=== PATIENT | male | born 1955 | race Caucasian/White ===

== ENCOUNTER → 2018-05-23 14:12 | Outpatient (CLI) | payer OTHER, SELFPAY ==
--- NOTE | 2018-05-23 14:14 | DI.RAD.S_ITS ---
PROCEDURE: XR FOOT LT MIN 3V INDICATIONS: 62 year-old male with left fourth toe injury. TECHNIQUE: 3 views of the foot were acquired. COMPARISON: None. FINDINGS: Bones: There is an impacted fracture of the fourth proximal phalangeal head and neck. Other bones appear intact. No suspicious bony lesions. Soft tissues: No tibiotalar joint effusion. Achilles tendon appears normal. IMPRESSION: Impacted fracture of the fourth proximal phalanx head and neck, with possible intra-articular extension. Dictated by: Andrae Frost M.D. on 05/23/2018 at 15:23 Approved by: Andrae Frost M.D. on 05/23/2018 at 15:24
== END ==
PROVIDERS: Family Provider Internal Medicine; PCP Internal Medicine; Visit Provider Internal Medicine
DX: S92.512A Displaced fracture of proximal phalanx of left lesser toe(s), initial encounter for closed fracture (principal)
CPT/HCPCS: 73630

== ENCOUNTER → 2018-07-26 16:28 | Outpatient (CLI) | payer OTHER, SELFPAY ==
[2018-07-26 17:23] LABS: Add Manual Diff / Slide Review NO; Basophils Percent Auto 1.2 % (0-2); Eosinophils Percent Auto 2.5 % (2-4); Hematocrit 44.4 % (41-53); Hemoglobin 15.2 g/dL (13.5-17.5); Lymphocytes Percent Auto 29.4 % (25-40); Mean Corpuscular HGB Conc 34.3 % (30-36); Mean Corpuscular Hemoglobin 34.5 PG (26-34); Mean Corpuscular Volume 100.6 fL (80-100); Monocytes Percent Auto 9.9 % (3-14); Neutrophils Absolute Auto 2900 /uL (3000-5900); Platelet Count 245 X10^3/uL (150-400); Red Blood Cell Count 4.41 X10^6/uL (4.5-5.9); Red Cell Distribution Width 13.8 % (11.6-14.8); White Blood Cell Count 5.1 X10^3/uL (4.5-11.0)
[2018-07-26 18:09] LABS: Alanine Aminotransferase 18 IU/L (21-72); Albumin 4.6 g/dL (3.5-5.0); Albumin Globulin Ratio 1.4 (1.0-2.8); Alkaline Phosphatase 66 U/L (38-126); Aspartate Aminotransferase 26 IU/L (17-59); BUN Creatinine Ratio 18.8 (6-22); Bilirubin Total 0.3 mg/dL (0.2-1.3); Blood Urea Nitrogen 15 mg/dL (9-20); Calcium 9.6 mg/dL (8.4-10.2); Carbon Dioxide 30 mmol/L (22-32); Chloride 105 mmol/L (98-107); Estimated Glomerular Filt Rate > 60.0 mL/min (>60); Globulin 3.2 g/dL (1.7-4.1); Glucose 83 mg/dL (80-110); HEMOLYSIS < 15 (0-50); Potassium 4.4 mmol/L (3.4-5.1); Sodium 146 mmol/L (137-145); Total Protein 7.8 g/dL (6.3-8.2)
== END ==
PROVIDERS: Family Provider Internal Medicine; PCP Internal Medicine; Visit Provider Internal Medicine
DX: E78.2 Mixed hyperlipidemia (principal)
CPT/HCPCS: 36415; 80053; 85025

== ENCOUNTER → 2019-09-04 10:41 | Outpatient (CLI) | payer OTHER, SELFPAY ==
[2019-09-04 12:10] LABS: Alanine Aminotransferase 22 IU/L (21-72); Albumin 4.8 g/dL (3.5-5.0); Albumin Globulin Ratio 1.5 (1.0-2.8); Alkaline Phosphatase 57 U/L (38-126); Aspartate Aminotransferase 23 IU/L (17-59); Bilirubin Total 0.8 mg/dL (0.2-1.3); Blood Urea Nitrogen 14 mg/dL (9-20); Calcium 10.2 mg/dL (8.4-10.2); Carbon Dioxide 26 mmol/L (22-32); Chloride 103 mmol/L (98-107); Cholesterol 269 mg/dL (140-199); Estimated Glomerular Filt Rate > 60.0 mL/min (>60); Globulin 3.2 g/dL (1.7-4.1); Glucose 102 mg/dL (80-110); HDL Cholesterol 87 mg/dL (40-60); HEMOLYSIS < 15 (0-50); LDL Cholesterol Calculated 145 mg/dL (<100); Potassium 4.8 mmol/L (3.4-5.1); Sodium 140 mmol/L (137-145); Triglycerides 183 mg/dL (35-150)
== END ==
PROVIDERS: PCP Internal Medicine; Visit Provider Internal Medicine
DX: E78.2 Mixed hyperlipidemia (principal); G89.4 Chronic pain syndrome; I10 Essential (primary) hypertension; Z12.5 Encounter for screening for malignant neoplasm of prostate
CPT/HCPCS: 36415; 80053; 80061; G0103

== ENCOUNTER → 2020-09-02 11:40 | Outpatient (CLI) | payer OTHER, SELFPAY ==
[2020-09-02 12:53] LABS: Alanine Aminotransferase 18 IU/L (<50); Albumin 4.3 g/dL (3.5-5.0); Albumin Globulin Ratio 1.4 (1.0-2.8); Alkaline Phosphatase 48 U/L (38-126); Aspartate Aminotransferase 23 IU/L (17-59); BUN Creatinine Ratio 13.3 (6-22); Bilirubin Total 0.5 mg/dL (0.2-1.3); Blood Urea Nitrogen 13 mg/dL (9-20); Calcium 9.2 mg/dL (8.4-10.2); Carbon Dioxide 28 mmol/L (22-32); Chloride 107 mmol/L (98-107); Cholesterol 225 mg/dL (140-199); Estimated Glomerular Filt Rate > 60.0 mL/min (>60); Globulin 3.1 g/dL (1.7-4.1); Glucose 95 mg/dL (80-110); HDL Cholesterol 69 mg/dL (40-60); HEMOLYSIS < 15 (0-50); LDL Cholesterol Calculated 128 mg/dL (<100); Potassium 4.1 mmol/L (3.4-5.1); Sodium 142 mmol/L (137-145); Total Protein 7.4 g/dL (6.3-8.2); Triglycerides 142 mg/dL (35-150)
[2020-09-02 13:13] LABS: Prostate Specific Antigen Scrn 0.394 ng/mL (0.1-4.0)
== END ==
PROVIDERS: PCP Internal Medicine; Referring Provider Internal Medicine; Visit Provider Internal Medicine
DX: E78.2 Mixed hyperlipidemia (principal); G89.4 Chronic pain syndrome; I10 Essential (primary) hypertension; Z12.5 Encounter for screening for malignant neoplasm of prostate
CPT/HCPCS: 36415; 80053; 80061; G0103

== ENCOUNTER → 2022-03-22 11:32 | Outpatient (CLI) | payer OTHER, SELFPAY ==
[2022-03-22 14:05] LABS: Alanine Aminotransferase 13 IU/L (<50); Albumin 4.8 g/dL (3.5-5.0); Albumin Globulin Ratio 1.6 (1.0-2.8); Alkaline Phosphatase 66 U/L (38-126); Aspartate Aminotransferase 22 IU/L (17-59); BUN Creatinine Ratio 13.7 (6-22); Bilirubin Total 0.5 mg/dL (0.2-1.3); Blood Urea Nitrogen 13 mg/dL (9-20); Calcium 9.4 mg/dL (8.4-10.2); Carbon Dioxide 26 mmol/L (22-32); Chloride 105 mmol/L (98-107); Cholesterol 298 mg/dL (140-199); Estimated Glomerular Filt Rate > 60 mL/min (>60); Glucose 89 mg/dL (80-110); HDL Cholesterol 77 mg/dL (40-60); HEMOLYSIS < 15 (0-50); LDL Cholesterol Calculated 185 mg/dL (<100); Potassium 4.3 mmol/L (3.4-5.1); Sodium 142 mmol/L (137-145); Total Protein 7.8 g/dL (6.3-8.2); Triglycerides 179 mg/dL (35-150)
[2022-03-22 14:28] LABS: Prostate Specific Antigen Scrn 0.663 ng/mL (0.1-4.0)
== END ==
PROVIDERS: PCP Internal Medicine; Referring Provider Internal Medicine; Visit Provider Internal Medicine
DX: I10 Essential (primary) hypertension (principal); Z12.5 Encounter for screening for malignant neoplasm of prostate; F11.20 Opioid dependence, uncomplicated; Z13.6 Encounter for screening for cardiovascular disorders
CPT/HCPCS: 36415; 80053; 80061; G0103

== ENCOUNTER → 2022-07-17 11:11 | Outpatient (CLI) | payer OTHER, SELFPAY ==
--- NOTE | 2022-07-17 11:12 | DI.MRI.S_ITS ---
PROCEDURE: MR SHOULDER RT WO CON INDICATIONS: ROTATOR CUFF ARTHROPATHY TECHNIQUE: Noncontrast oblique coronal T2 fast spin echo with fat saturation, oblique sagittal T1 spin echo and T2 fast spin echo with fat saturation, axial T1 spin echo and T2 fast spin echo with fat saturation through the shoulder. COMPARISON: [facility] [place], [place], XR SHOULDER 2+ VIEWS RIGHT, 06/29/2022, 15:15. FINDINGS: Image quality: Excellent. Rotator cuff: Nearly completely atrophied supraspinatus, infraspinatus, and teres minor. Complete supraspinatus and infraspinatus tear. Some fibers of the teres minor remain intact. High-grade tendinosis of the subscapularis with multifocal interstitial tearing. Bones and bursae: Complete communication with the subacromial subdeltoid bursa with the joint space, which has a moderate size effusion. Severe degenerative changes of the acromioclavicular joint, with a small geyser sign. The humeral head is superiorly subluxed in relation to the glenoid. Capsule and soft tissues: The inferior glenohumeral ligament is intact. The long head biceps tendon is not well seen in the intra-articular aspect. Moderate joint effusion with multiple loose bodies. The superior, anterior, and posterior labrum are highly attenuated. 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 Moderate-sized joint effusion with loose bodies. Dictated by: Musa Sahni M.D. on 07/19/2022 at 14:57 Approved by: Musa Sahni M.D. on 07/19/2022 at 15:03
== END ==
PROVIDERS: PCP Internal Medicine; Referring Provider Orthopaedic Surgery; Visit Provider Orthopaedic Surgery
DX: M19.011 Primary osteoarthritis, right shoulder (principal); M25.411 Effusion, right shoulder; M24.011 Loose body in right shoulder
CPT/HCPCS: 73221

== ENCOUNTER → 2023-03-23 10:05 | Outpatient (CLI) | payer OTHER, SELFPAY ==
[2023-03-23 11:25] LABS: Alanine Aminotransferase 27 IU/L (<50); Albumin 4.6 g/dL (3.5-5.0); Albumin Globulin Ratio 1.5 (1.0-2.8); Alkaline Phosphatase 66 U/L (38-126); Aspartate Aminotransferase 36 IU/L (17-59); BUN Creatinine Ratio 16.4 (6-22); Bilirubin Total 0.4 mg/dL (0.2-1.3); Blood Urea Nitrogen 12 mg/dL (9-20); Calcium 9.6 mg/dL (8.4-10.2); Carbon Dioxide 26 mmol/L (22-32); Chloride 102 mmol/L (98-107); Cholesterol 292 mg/dL (140-199); Estimated Glomerular Filt Rate > 60 mL/min (>60); Glucose 108 mg/dL (80-110); HDL Cholesterol 90 mg/dL (40-60); HEMOLYSIS < 15 (0-50); LDL Cholesterol Calculated 179 mg/dL (<100); Potassium 4.3 mmol/L (3.4-5.1); Sodium 137 mmol/L (137-145); Total Protein 7.6 g/dL (6.3-8.2); Triglycerides 115 mg/dL (35-150)
[2023-03-23 11:57] LABS: Prostate Specific Antigen Scrn 0.773 ng/mL (0.1-4.0)
== END ==
PROVIDERS: Family Provider Internal Medicine; PCP Internal Medicine; Referring Provider Internal Medicine; Visit Provider Internal Medicine
DX: E78.2 Mixed hyperlipidemia (principal); Z12.5 Encounter for screening for malignant neoplasm of prostate; I10 Essential (primary) hypertension
CPT/HCPCS: 36415; 80053; 80061; G0103

== ENCOUNTER 2023-05-10 10:04 | Day surgery (SDC) | payer OTHER, SELFPAY ==
--- NOTE | 2023-05-10 | PATH_ITS ---
[facility] Accession Number: [id number] No. of containers..01 Tissue . 01 Material submitted: . colon - SIGMOID . 01 Diagnosis: Sigmoid Colon, Biopsies: Fragments of tubular adenoma and hyperplastic polyp. [facility] 05/17/2023 1325 Local . 01 Electronically signed: . Vernell Lion MD, Pathologist NPI- [id number] . 01 Gross description: . SIGMOID: Received in formalin are multiple fragment(s) of llanos, soft tissue measuring 1.1 x 0.2 x 0.2 cm in aggregate submitted entirely in 1 cassette(s) /[facility] 05/13/2023 1515 Local . 01 Pathologist provided ICD-10: D12.5 . 01 CPT . 734985 Specimen Comment: A courtesy copy of this report has been sent to [phone] Performed at: 01 [facility] [address] [place] [address], [place], [place] [id number] MD Chaitanya Cordova MD Phone: [phone]
[2023-05-10 10:32] VITALS: BP 141/73; PULSE 78; RESP 19; TEMP 36.8; O2SAT 95; BMI 30.2
[2023-05-10] MEDS: LACTATED RINGERS 1,000 ML 200 ML IV (10:47)
--- NOTE | 2023-05-10 11:33 | PM.HP.1 ---
History of Present Illness History of Present Illness Date Patient Seen: 05/10/23 Time Patient Seen: 11:33 Chief complaint: SDC Narrative: 67-year-old man personal history of colonic polyps here for screening colonoscopy. No family history of intestinal malignancy. Last colonoscopy 5 years ago. History of diverticular disease with a sigmoid resection for such. [facility] Medical History (Updated 03/24/23 @ 15:36 by Luis Massey MD) Adenomatous polyp of colon (07/05/11) Bilateral low back pain with right-sided sciatica (10/07/15) Bilateral shoulder pain Diverticular disease Essential hypertension (03/17/17) Mixed hyperlipidemia Pain of left hip (01/17/17) Primary insomnia (07/05/11) Uncomplicated opioid dependence Surgical History History of bowel resection Status post rotator cuff repair Family History Brother Lung cancer AAA (abdominal aortic aneurysm) Social History marital status: number of children: 5 (3 biological, 2 step.) household members: children lives independently: Yes caregiver/support person: No housing: house pets and animals: Yes education level: other (Associates Degree in Criminal Justice, Nursing degree.) occupational status: other (Retired.) current occupational exposures/hazards: No 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 james/jehovah's witness: [employer] leisure activities: exercise (Swimming.), reading and other (Hiking.) Smoking Status: Former smoker Tobacco: How many years used: 10 (On and off) Smokeless tobacco user: other (Cigarettes.) quit status: quit date established (~[id number]) second hand exposure: No alcohol intake: current substance use type: does not use Meds Home Medications and Allergies Home Medications Medication Instructions Recorded Confirmed Type sildenafil (pulm.hypertension) 20 See Rx Instructions PO ONCE PRN 06/19/20 05/10/23 Rx mg tablet sexual activity #20 tabs naproxen 500 mg tablet (Naprosyn) 500 mg PO BIDCC #180 tabs 12/22/21 05/10/23 Rx trazodone 150 mg tablet 150 mg PO BEDTIME #90 tabs 03/31/23 05/10/23 Rx diazepam 5 mg tablet See Rx Instructions PO Q6H PRN 04/21/23 05/10/23 Rx back spasm #90 tabs hydrocodone 7.5 mg-acetaminophen 1 - 3 tab PO Q4H PRN pain #91 tabs 04/21/23 05/10/23 Rx 325 mg tablet Allergies Allergy/AdvReac Type Severity Reaction Status Date / Time cyclobenzaprine AdvReac Mild Excessive Verified 05/10/23 10:19 [CYCLOBENZAPRINE] sleepiness Exam Vital Signs (past 8 hours): - 05/10/23 10:32 Temperature 98.2 F Pulse Rate 78 Respiratory Rate 19 Blood Pressure 141/73 H Pulse Oximetry 95 Oxygen Delivery Method Room Air Oxygen Delivery Method Room Air Narrative Exam Narrative: General adult man alert oriented no acute distress Abdomen soft nontender nondistended Assessment & Plan Assessment and plan (1) Adenomatous polyp of colon: Qualifiers: Colon location: unspecified part of colon Qualified Code(s): D12.6 - Benign neoplasm of colon, unspecified Status: Chronic Assessment & Plan narrative: The patient requires colorectal screening and colonoscopy is recommended. Technical details were discussed. Risks, benefits, alternatives explained. Risks including but not limited to myocardial infarction, aspiration, bleeding, pain, missed lesion, incomplete examination, need for further radiographic studies, colonic perforation, and need for major abdominal surgery were discussed. All questions were answered to their satisfaction, and they are in agreement with this plan.
--- NOTE | 2023-05-10 12:00 | PM.OP.COLON ---
Operative Date/Time/Diagnoses Date of procedure: 05/10/23 Time of procedure: 12:00 Pre-op diagnosis: Personal history of colonic polyps Post-op diagnosis: other (Colonic polyps x2) Procedure & Clinicians Study performed: Colonoscopy and polypectomy Same procedure as scheduled: Yes Indications: Personal history of colonic polyps, colorectal screening Surgeon: Jai Obando Procedure Notes Procedure in detail: The history and physical was performed/updated and the patient is ASA class is 2. The procedure was discussed in detail with the patient. Potential risks complications including infection, bleeding, missed diagnosis, perforation, need for surgery, and were explained. Their questions were answered and informed consent was obtained. Patient was brought to the procedure room and placed standard monitoring equipment. The patient's vital signs were monitored continuously throughout the entire procedure. Prior to starting time-out was performed. The patient was placed in the left lateral recumbent position. Procedural sedation was administered by anesthesia. Examination began with a thorough inspection of the perianal area there was no evidence of fissures, fistulae, external hemorrhoids or cutaneous malignancy. The colonoscopy scope was then placed into the anal canal and was advanced to the cecum, which was identified by the ileocecal valve, the appendiceal orifice and the confluence of the taenia. The scope was then slowly withdrawn examining colon thoroughly in all directions, irrigating it of any residual stool. Within the sigmoid colon there to less than 5 mm polyps both removed with biopsy forceps. The remainder of the colon was unremarkable with the exception of mild diverticulosis of the sigmoid colon. The patient tolerated the procedure well. They will be discharged once criteria are met. The prep was of good/excellent quality. The withdrawl time was 7 minutes. Specimen(s): other (Sigmoid polyps x2) Impression: Colonic polyps x2 Post-procedure Recommendations: High fiber diet Plan for aftercare: Follow-up is dependent on pathology findings Disposition: same day surgery
[2023-05-10 12:02] VITALS: BP 94/66; PULSE 63; RESP 12; TEMP 37.3; O2SAT 97
[2023-05-10 12:07] VITALS: BP 101/73; PULSE 72; RESP 15; O2SAT 97
[2023-05-10 12:12] VITALS: BP 106/74; PULSE 65; RESP 16; TEMP 37.3; O2SAT 96
[2023-05-10 12:22] VITALS: BP 122/74; PULSE 774; RESP 14; TEMP 37.2; O2SAT 95
== END 2023-05-10 13:08 | disposition home or self-care (01) ==
PROVIDERS: Family Provider Internal Medicine; PCP Internal Medicine; Referring Provider Surgery; Visit Provider Surgery
PROC: 0DJD8ZZ Inspection of Lower Intestinal Tract, Via Natural or Artificial Opening Endoscopic (ICD-10-PCS; CPT 45378; principal; 2023-05-10 11:15)
DX: Z12.11 Encounter for screening for malignant neoplasm of colon (principal); Z86.010 Personal history of colon polyps; D12.5 Benign neoplasm of sigmoid colon
CPT/HCPCS: 45380

== ENCOUNTER → 2024-03-23 10:46 | Outpatient (CLI) | payer OTHER, SELFPAY ==
[2024-03-23 12:45] LABS: Add Manual Diff / Slide Review NO; Basophils Absolute Auto 0 /uL (0-100); Basophils Percent Auto 0.8 % (0-2); Eosinophils Absolute Auto 100 /uL (0-450); Eosinophils Percent Auto 1.7 % (2-4); Hematocrit 43.3 % (41-53); Hemoglobin 14.8 g/dL (13.5-17.5); Lymphocytes Absolute Auto 1700 /uL (1100-4500); Lymphocytes Percent Auto 33.3 % (25-40); Mean Corpuscular HGB Conc 34.1 % (30-36); Mean Corpuscular Hemoglobin 34.4 PG (26-34); Mean Corpuscular Volume 100.8 fL (80-100); Monocytes Absolute Auto 500 /uL (0-900); Monocytes Percent Auto 10.6 % (3-14); Neutrophils Absolute Auto 2800 /uL (1500-7000); Neutrophils Percent Auto 53.6 % (50-75); Platelet Count 237 X10^3/uL (150-400); Red Cell Distribution Width 13.2 % (11.6-14.8); White Blood Cell Count 5.2 X10^3/uL (4.5-11.0)
[2024-03-23 13:37] LABS: Alanine Aminotransferase 15 IU/L (<50); Albumin 4.7 g/dL (3.5-5.0); Albumin Globulin Ratio 1.7 (1.0-2.8); Alkaline Phosphatase 58 U/L (38-126); Aspartate Aminotransferase 24 IU/L (17-59); BUN Creatinine Ratio 11.4 (6-22); Bilirubin Total 0.7 mg/dL (0.2-1.3); Blood Urea Nitrogen 9 mg/dL (9-20); Calcium 9.6 mg/dL (8.4-10.2); Carbon Dioxide 25 mmol/L (22-32); Chloride 103 mmol/L (98-107); Cholesterol 260 mg/dL (140-199); Estimated Glomerular Filt Rate > 60 mL/min (>60); Globulin 2.7 g/dL (1.7-4.1); Glucose 85 mg/dL (80-110); HDL Cholesterol 73 mg/dL (40-60); HEMOLYSIS < 15 (0-50); LDL Cholesterol Calculated 161 mg/dL (<100); Potassium 4.1 mmol/L (3.4-5.1); Sodium 137 mmol/L (137-145); Total Protein 7.4 g/dL (6.3-8.2); Triglycerides 129 mg/dL (35-150)
[2024-03-23 14:02] LABS: Prostate Specific Antigen Scrn 0.797 ng/mL (0.1-4.0)
== END ==
PROVIDERS: Family Provider Internal Medicine; PCP Internal Medicine; Referring Provider Internal Medicine; Visit Provider Internal Medicine
DX: E78.2 Mixed hyperlipidemia (principal); Z12.5 Encounter for screening for malignant neoplasm of prostate; F11.20 Opioid dependence, uncomplicated; G89.4 Chronic pain syndrome; D64.9 Anemia, unspecified
CPT/HCPCS: 36415; 80053; 80061; 85025; G0103

== ENCOUNTER → 2025-01-09 15:38 | Outpatient (CLI) | payer OTHER, SELFPAY ==
[2025-01-09 17:46] LABS: Alanine Aminotransferase 18 IU/L (<50); Albumin 4.8 g/dL (3.5-5.0); Albumin Globulin Ratio 1.8 (1.0-2.8); Alkaline Phosphatase 56 U/L (38-126); Aspartate Aminotransferase 26 IU/L (17-59); BUN Creatinine Ratio 12.8 (6-22); Bilirubin Total 0.4 mg/dL (0.2-1.3); Blood Urea Nitrogen 11 mg/dL (9-20); Calcium 9.7 mg/dL (8.4-10.2); Carbon Dioxide 28 mmol/L (22-32); Chloride 101 mmol/L (98-107); Cholesterol 195 mg/dL (140-199); Estimated Glomerular Filt Rate > 60 mL/min (>60); Globulin 2.7 g/dL (1.7-4.1); Glucose 97 mg/dL (80-110); HDL Cholesterol 96 mg/dL (40-60); HEMOLYSIS < 15 (0-50); LDL Cholesterol Calculated 81 mg/dL (<100); Potassium 4.5 mmol/L (3.4-5.1); Sodium 136 mmol/L (137-145); Total Protein 7.5 g/dL (6.3-8.2); Triglycerides 91 mg/dL (35-150)
== END ==
PROVIDERS: Family Provider Internal Medicine; PCP Internal Medicine; Referring Provider Internal Medicine; Visit Provider Internal Medicine
DX: I10 Essential (primary) hypertension (principal); E78.2 Mixed hyperlipidemia; F11.20 Opioid dependence, uncomplicated
CPT/HCPCS: 36415; 80053; 80061

== ENCOUNTER → 2025-07-09 08:23 | Outpatient (CLI) | payer OTHER, SELFPAY ==
[2025-07-09 10:03] LABS: Alanine Aminotransferase 24 IU/L (<50); Albumin 4.6 g/dL (3.5-5.0); Albumin Globulin Ratio 1.6 (1.0-2.8); Alkaline Phosphatase 65 U/L (38-126); Blood Urea Nitrogen 9 mg/dL (9-20); Calcium 9.3 mg/dL (8.4-10.2); Carbon Dioxide 24 mmol/L (22-32); Chloride 100 mmol/L (98-107); Cholesterol 192 mg/dL (140-199); Estimated Glomerular Filt Rate > 60 mL/min (>60); Globulin 2.9 g/dL (1.7-4.1); Glucose 106 mg/dL (70-99); HDL Cholesterol 103 mg/dL (40-60); Potassium 5.0 mmol/L (3.4-5.1); Sodium 132 mmol/L (137-145); Total Protein 7.5 g/dL (6.3-8.2); Triglycerides 64 mg/dL (35-150)
[2025-07-09 10:04] LABS: HEMOLYSIS 104 (0-50)
[2025-07-09 12:00] LABS: TSH w/ Reflex to FT4 8.68 uIU/mL (0.47-4.68)
[2025-07-09 14:29] LABS: Free T4, Direct Thyroxine 0.84 ng/dL (0.78-2.19)
== END ==
PROVIDERS: Family Provider Internal Medicine; PCP Internal Medicine; Referring Provider Internal Medicine; Visit Provider Internal Medicine
DX: I10 Essential (primary) hypertension (principal); Z12.5 Encounter for screening for malignant neoplasm of prostate; E78.2 Mixed hyperlipidemia; E03.9 Hypothyroidism, unspecified
CPT/HCPCS: 36415; 80053; 80061; 84439; 84443; G0103